=== PATIENT | male | born 2000 | race Caucasian/White ===

== ENCOUNTER 2024-07-13 13:06 | Emergency (ER) | payer BC ==
[~2024-07-13 13:06] MED LIST: KEFLEX250 MG/5 M PO; NKHM
[2024-07-13] MEDS ORDERED: FAMOTIDINE 50 ML IV ONE (13:45)
[2024-07-13] MEDS ORDERED: SODIUM CHLORIDE 0.9% 1,000 ML IV ONE (13:45)
[2024-07-13] MEDS ORDERED: EPINEPHrine Hydrochloride 1 MG/ML AMP IM ONE (13:50)
[2024-07-13] MEDS ORDERED: diphenhydrAMINE hydrochloride 50 MG/ML VIAL IV ONE (13:50)
[2024-07-13 14:10] LABS: BASO # 0.1 10*3/uL (0.0-0.1); BASO % 0.4 % (0.0-1.0); EOS # 0.3 10*3/uL (0.0-0.4); EOS % 2.3 % (1.0-4.0); HEMATOCRIT 45.5 % (42.0-52.0); LYMPH # 3.3 10*3/uL (1.3-4.4); LYMPH % 28.2 % (27.0-41.0); MEAN CELL VOLUME 83.6 fl (80.0-94.0); MEAN CORPUSCULAR HGB 28.5 pg (27.0-31.0); MEAN CORPUSCULAR HGB CONC 34.1 g/dl (33.0-37.0); MEAN PLATELET VOLUME 10.3 fl (9.6-12.3); MONO # 0.6 10*3/uL (0.1-1.0); MONO % 4.9 % (3.0-9.0); NEUT # 7.3 10*3/uL (2.3-7.9); NEUT % 63.6 % (47.0-73.0); PLATELET COUNT AUTOMATED 215 10*3/uL (130-400); RED BLOOD COUNT 5.44 10*6/uL (4.50-5.90); RED CELL DISTRI WIDTH 12.4 % (0-14.5); WHITE BLOOD COUNT 11.5 10*3/uL (4.8-10.8)
[2024-07-13 14:33] LABS: BUN 11 mg/dl (9-23); CHLORIDE 105 mmol/L (98-107); POTASSIUM 3.5 mmol/L (3.4-5.1)
[2024-07-13] MEDS ORDERED: EPIPEN 2-P0.3 MG/0.3 IJ (14:59)
== END 2024-07-13 15:09 | disposition home or self-care (01) ==
LOC: ED 13:06
PROVIDERS: Emergency Medicine
DX: T78.2XXA Anaphylactic shock, unspecified, initial encounter (principal); T63.441A Toxic effect of venom of bees, accidental (unintentional), initial encounter; Y92.89 Other specified places as the place of occurrence of the external cause

== ENCOUNTER 2025-02-21 07:23 | Emergency (ER) | payer BC ==
[~2025-02-21] VITALS: Ht 182.8 cm; Wt 137.6 kg
[~2025-02-21 07:23] MED LIST changes: +EPIPEN 2-P0.3 MG/0.3 IJ
[2025-02-21] MEDS ORDERED: TRIAMCINOLONE ACETONIDE 40 MG/ML VIAL IM ONE (07:55)
== END 2025-02-21 09:34 | disposition home or self-care (01) ==
LOC: ED 07:23
DX: L25.9 Unspecified contact dermatitis, unspecified cause (principal); Z79.899 Other long term (current) drug therapy; Z88.8 Allergy status to other drugs, medicaments and biological substances